=== PATIENT | female | born 2000 | race Caucasian/White ===

== ENCOUNTER 2022-11-22 14:17 | Emergency (ER) | payer OTHER ==
[~2022-11-22] VITALS: Ht 152.4 cm; Wt 78.5 kg
[2022-11-22 14:42] VITALS: BP_SYST 139
[2022-11-22] MEDS ORDERED: TRAM50TA2 PO (15:31)
[2022-11-22] MEDS ORDERED: METH-634 PO (15:31)
[2022-11-22] MEDS ORDERED: IBUP-1969 PO (15:31)
[2022-11-22 18:03] VITALS: BP_SYST 139
== END 2022-11-22 16:05 | disposition home or self-care (01) ==
LOC: SED 14:17
DX: S16.1XXA Strain of muscle, fascia and tendon at neck level, initial encounter (principal); Z79.899 Other long term (current) drug therapy; V89.2XXA Person injured in unspecified motor-vehicle accident, traffic, initial encounter; Y93.89 Activity, other specified; Y92.89 Other specified places as the place of occurrence of the external cause; Y99.8 Other external cause status
CPT/HCPCS: 72125-TC; 76376; 99284